=== PATIENT | female | born 1970 | race Two or more races ===

== ENCOUNTER 2021-04-20 13:55 | Emergency (ER) | payer MEDICAID ==
[~2021-04-20] VITALS: Ht 162.6 cm; Wt 59.0 kg
[2021-04-20 13:57] VITALS: BP 122/84
== END 2021-04-20 20:44 | disposition home or self-care (01) ==
LOC: ER 13:55
DX: J33.9 Nasal polyp, unspecified (principal); J32.9 Chronic sinusitis, unspecified